=== PATIENT | female | born 1985 | race Caucasian/White ===

== ENCOUNTER 2021-12-28 20:53 | Inpatient (IN) ==
[2021-12-28] MEDS ORDERED: FAMOTIDINE 20 MG/2 ML VIAL IV ONE (21:18)
[2021-12-28] MEDS ORDERED: METHYLERGONOVINE 0.2 MG/1 ML AMP IM PRN (21:18)
[2021-12-28] MEDS ORDERED: miSOPROStoL 200 MCG TABLET RECTAL PRN (21:18)
[2021-12-28] MEDS ORDERED: ceFAZolin 2,000 MG/50 ML DUPLEX IV ONE (21:18)
[2021-12-28] MEDS ORDERED: CARBOPROST TROMETHAMINE 250 MCG/ML AMP IM PRN (21:18)
[2021-12-28] MEDS ORDERED: TRANEXAMIC ACID 1,000 MG in SODIUM CHLORIDE 0.9% 100 ML IV PRN (21:18)
[2021-12-28] MEDS ORDERED: OXYTOCIN/LR 20 UNIT/1,000 ML BAG IV ONE ×2 (21:18→23:42)
[2021-12-28] MEDS ORDERED: CITRIC ACID/SODIUM CITRATE 30 ML UDCUP PO ONE (21:18)
[2021-12-28] MEDS ORDERED: LACTATED RINGERS 1,000 ML IV SCH ×2 (21:30→23:45)
[2021-12-28 21:44] LABS: Basophils % 0.1 % (0.0-0.8); Eosinophils # 0.1 10*3/uL (0.0-0.87); Eosinophils % 0.7 % (0.00-10.9); Hematocrit 31.3 VOL% (35.7-47.0); Hemoglobin 10.4 GM/DL (12.0-16.0); Immature Granulocytes % 0.8 %; Immature Granulocytes Absolute 0.08 #; Lymphocytes # 2.4 10*3/uL (1.4-4.0); Lymphocytes % 23.8 % (21.3-54.2); Mean Corpuscular HGB Conc 33.2 GM/DL (32-36); Mean Corpuscular Volume 92.9 FL (87-102); Mean Platelet Volume 11.4 FL (9.6-12.0); Monocytes # 0.5 10*3/uL (0.11-0.8); Monocytes % 4.6 % (1.7-12.7); Platelet Count 248 T/CUMM (130-400); Red Blood Count 3.37 MC/CUMM (3.8-5.5)
[2021-12-28] MEDS ORDERED: buprenorphine HCL 0.3 MG/ML VIAL ONE (21:56)
[2021-12-28] MEDS ORDERED: PHENYLEPHRINE 1 MG/10 ML SYRINGE IV ONE (21:56)
[2021-12-28] MEDS ORDERED: BUPIVACAINE SPINAL 0.75% 2 ML AMP SPINAL ONE (21:56)
[2021-12-28 22:03] LABS: Alanine Aminotransferase 14 U/L (13-56); Albumin 2.9 G/DL (3.4-5.0); Alkaline Phosphatase 128 U/L (45-117); Aspartate Amino Transferase 13 U/L (0-37); Bilirubin,Total < 0.39 MG/DL (0.20-1.00); Blood Urea Nitrogen 8 MG/DL (7-18); Calcium 8.9 MG/DL (8.5-10.1); Carbon Dioxide 21 MMOL/L (21-32); Chloride 109 MMOL/L (98-107); Glucose 144 MG/DL (74-106); Osmolality,Calculated 277.5 MOS/KG (273-304); Potassium 3.5 MMOL/L (3.5-5.1); Sodium 139 MMOL/L (136-145); Total Protein 6.7 G/DL (6.4-8.2)
[2021-12-28] MEDS ORDERED: ACETAMINOPHEN INJ 1,000 MG/100 ML VIAL IV ONE (22:28)
[2021-12-28] MEDS ORDERED: KETOROLAC 30 MG/1 ML VIAL ONE (22:28)
[2021-12-28 23:00] LABS: Cord Arterial Blood HCO3 19.6 MMOL/L
[2021-12-28 23:02] LABS: Cord Venous Blood HCO3 22.6 MMOL/L; Cord Venous Blood PCO2 46.6 MMHG; Cord Venous Blood PO2 26.2
[2021-12-28] MEDS ORDERED: ONDANSETRON 4 MG/2 ML VIAL IV PRN (23:42)
[2021-12-28] MEDS ORDERED: ACETAMINOPHEN 325 MG TABLET PO PRN (23:42)
[2021-12-28] MEDS ORDERED: RHO(D) IMMUNE GLOBULIN 300 MCG SYRINGE IM ONE (23:42)
[2021-12-28] MEDS ORDERED: SIMETHICONE CHEW 80 MG TABLET PO PRN (23:42)
[2021-12-29 01:27] LABS: Bacteria,Urine Occasional /HPF (Few); Mucus,Urine Occasional /LPF (Occasional)
[2021-12-29 01:29] LABS: Bilirubin,Urine Negative (Negative); Blood, Urine Trace mg/dL (Negative); Glucose,Urine (UA) Negative (Negative); Ketones,Urine Trace mg/dL (Negative); Nitrite,Urine Negative (Negative); Protein,Urine Negative (Negative); Urine Appearance Clear (Clear); Urine Color Yellow (Yellow); Urine Urobilinogen 0.2 eU/dL (<2.0)
[2021-12-29] MEDS ORDERED: ACETAMINOPHEN 500 MG TABLET PO PRN (01:46)
[2021-12-29] MEDS ORDERED: ONDANSETRON 4 MG/2 ML VIAL IV PRN (05:13)
[2021-12-29] MEDS: KETOROLAC 30 MG/1 ML VIAL IV SCH ×3 (05:14→22:39)
[2021-12-29] MEDS: ACETAMINOPHEN 500 MG TABLET PO SCH ×3 (05:30→22:39)
[2021-12-29 07:02] LABS: Basophils % 0.1 % (0.0-0.8); Eosinophils % 0.3 % (0.00-10.9); Hematocrit 28.2 VOL% (35.7-47.0); Hemoglobin 9.2 GM/DL (12.0-16.0); Immature Granulocytes % 0.5 %; Immature Granulocytes Absolute 0.07 #; Lymphocytes % 14.5 % (21.3-54.2); Mean Corpuscular HGB Conc 32.6 GM/DL (32-36); Mean Corpuscular Volume 93.7 FL (87-102); Mean Platelet Volume 11.3 FL (9.6-12.0); Monocytes # 0.7 10*3/uL (0.11-0.8); Monocytes % 4.7 % (1.7-12.7); Neutrophils % 79.9 % (38.7-73.9); Platelet Count 198 T/CUMM (130-400); Red Blood Count 3.01 MC/CUMM (3.8-5.5); Red Cell Distribution Width 13.1 % (9.3-17.3); White Blood Count 13.8 T/CUMM (4-12)
[2021-12-29] MEDS: DOCUSATE SODIUM 100 MG CAPSULE PO SCH ×2 (09:20→22:38)
[2021-12-29] MEDS: MULTIVITAMIN (PRENATAL) TABLET PO SCH (09:20)
[2021-12-29] MEDS: MAGNESIUM HYDROXIDE SUSP 30 ML UDCUP PO PRN (09:21)
[2021-12-29] MEDS: oxyCODONE/ACETAMINOPHEN 5-325 MG TABLET PO PRN ×3 (09:24→21:58)
[2021-12-29 14:56] LABS: Basophils % 0.1 % (0.0-0.8); Eosinophils # 0.1 10*3/uL (0.0-0.87); Eosinophils % 0.5 % (0.00-10.9); Hematocrit 26.4 VOL% (35.7-47.0); Hemoglobin 8.7 GM/DL (12.0-16.0); Immature Granulocytes % 0.6 %; Immature Granulocytes Absolute 0.07 #; Lymphocytes # 1.5 10*3/uL (1.4-4.0); Lymphocytes % 13.8 % (21.3-54.2); Mean Corpuscular Volume 93.3 FL (87-102); Mean Platelet Volume 11.6 FL (9.6-12.0); Monocytes # 0.5 10*3/uL (0.11-0.8); Monocytes % 4.6 % (1.7-12.7); Neutrophils % 80.4 % (38.7-73.9); Platelet Count 210 T/CUMM (130-400); Red Blood Count 2.83 MC/CUMM (3.8-5.5); Red Cell Distribution Width 13.1 % (9.3-17.3); White Blood Count 11.1 T/CUMM (4-12)
[2021-12-30] MEDS: MULTIVITAMIN (PRENATAL) TABLET PO SCH (08:26)
[2021-12-30] MEDS: FERROUS SULFATE 325 MG TABLET PO SCH ×2 (08:26→23:00)
[2021-12-30] MEDS: MAGNESIUM HYDROXIDE SUSP 30 ML UDCUP PO PRN (08:26)
[2021-12-30] MEDS: DOCUSATE SODIUM 100 MG CAPSULE PO SCH ×2 (08:26→23:00)
[2021-12-30] MEDS: IBUPROFEN 800 MG TABLET PO PRN ×2 (08:27→16:02)
[2021-12-30] MEDS: oxyCODONE/ACETAMINOPHEN 5-325 MG TABLET PO PRN ×2 (11:57→20:14)
[2021-12-30] MEDS ORDERED: MAGNESIUM CITRATE 300 ML BOTTLE PO ONE (18:05)
[2021-12-31] MEDS: IBUPROFEN 800 MG TABLET PO PRN ×2 (00:27→08:25)
[2021-12-31] MEDS: oxyCODONE/ACETAMINOPHEN 5-325 MG TABLET PO PRN (04:51)
[2021-12-31] MEDS: DOCUSATE SODIUM 100 MG CAPSULE PO SCH (08:23)
[2021-12-31] MEDS: MULTIVITAMIN (PRENATAL) TABLET PO SCH (08:23)
[2021-12-31] MEDS: FERROUS SULFATE 325 MG TABLET PO SCH (08:23)
[2021-12-31] MEDS ORDERED: MEASLES/MUMPS/RUBELLA VACCINE 0.5 ML VIAL SUBCUT ONE (10:05)
[2021-12-31 13:10] VITALS: BP 121/66
== END 2021-12-31 12:45 | disposition home or self-care (01) | DRG 788 ==
LOC: N.LDOUT 20:53 → N.LD 20:55 → N.OB 12-29 03:45
PROVIDERS: ADMIT Obstetrics & Gynecology; ATTEND Obstetrics & Gynecology
PROC: LDCSECT (ICD-10-PCS; 2021-12-28 22:00)